=== PATIENT | female | born 1955 | race Caucasian/White ===

== ENCOUNTER 2020-06-25 01:19 | Inpatient (IN) | payer MEDICARE, OTHER ==
[~2020-06-25] VITALS: Ht 162.6 cm; Wt 117.9 kg
[2020-06-25 03:17] LABS: BASOPHILS # (AUTO) 0.1 (0.0-0.1); BASOPHILS % 0.5 % (0.0-1.0); EOSINOPHILS # (AUTO) 0.1 (0.0-0.4); HEMATOCRIT 34.2 % (34.2-44.1); HEMOGLOBIN 10.1 g/dL (12.0-16.0); LYMPHOCYTES # (AUTO) 1.6 (1.0-3.2); LYMPHOCYTES % 14.6 % (18.0-39.1); MEAN CORPUSCULAR HGB CONC 29.5 g/dL (31-35); MEAN CORPUSCULAR VOLUME 87.9 fL (81-99); MONOCYTES # (AUTO) 0.9 (0.2-0.8); MONOCYTES % 8.5 % (4.4-11.3); NEUTROPHILS # (AUTO) 8.3 (2.1-6.9); PLATELET COUNT 269 x10e3/uL (140-360); RED BLOOD COUNT 3.89 x10e6/uL (3.6-5.1); RED CELL DISTRIBUTION WIDTH 19.9 % (11.7-14.4)
[2020-06-25 03:26] LABS: INR 1.04; PROTHROMBIN TIME 14.3 seconds (11.9-14.5)
[2020-06-25 03:32] LABS: CALCIUM 8.3 mg/dL (8.4-10.2); CREATININE, SERUM 1.19 mg/dL (0.57-1.11)
[2020-06-25] MEDS ORDERED: SODIUM CHLORIDE 0.9% 1000ML 1,000 ML IV STA (04:05)
[2020-06-25] MEDS ORDERED: SODIUM CHLORIDE 0.9% 50ML 50 ML ONE (04:56)
[2020-06-25] MEDS ORDERED: IOPAMIDOL 370 MG/ML 200 ML INFUS..BTL INJ ONE (04:57)
[2020-06-25] MEDS: ONDANSETRON HCL INJ 2MG/ML 2ML 2 MG/ML VIAL IV PRN ×3 (05:45→17:50)
[2020-06-25] MEDS: MORPHINE SULFATE INJ 2 MG/ML SYR IV PRN ×2 (05:45→11:20)
[2020-06-25 07:25] VITALS: BP 114/67
[2020-06-25 08:39] VITALS: BP 114/67
[2020-06-25] MEDS ORDERED: OMEPRAZOLE20 MG PO (12:30)
[2020-06-25] MEDS ORDERED: LIPITOR20 MG PO (12:30)
[2020-06-25] MEDS ORDERED: GABAPENTIN400 MG PO (12:30)
[2020-06-25] MEDS ORDERED: LISINOPRIL10 MG PO (12:30)
[2020-06-25] MEDS ORDERED: TOPIRAMATE100 MG PO ×2 (12:30)
[2020-06-25] MEDS ORDERED: PROVENTIL HFA6.7 GM INH (12:30)
[2020-06-25] MEDS ORDERED: SINGULAIR10 MG PO (12:30)
[2020-06-25] MEDS ORDERED: ALBUTEROL SULFATE HFA 8GM INHALATION AEROSOL INH PRN ×2 (13:15→14:30)
[2020-06-25 13:31] VITALS: BP_SYST 90; BP_DIAS 46; BP_DIAS 56
[2020-06-25 16:49] VITALS: BP 129/89
[2020-06-25] MEDS ORDERED: GABAPENTIN 400 MG CAP PO SCH (17:00)
[2020-06-25 20:00] VITALS: BP 101/53
[2020-06-25] MEDS: GABAPENTIN 400 MG CAP PO SCH (20:32)
[2020-06-25] MEDS: ATORVASTATIN 20 MG TAB PO SCH (20:32)
[2020-06-25] MEDS: TOPIRAMATE 100 MG TAB PO SCH (20:32)
[2020-06-25 20:55] VITALS: BP 101/53
[2020-06-26] VITALS (8 sets, daily range): BP systolic 82–160; BP diastolic 48–91
[2020-06-26] MEDS: PANTOPRAZOLE SOD 40 MG TABEC PO SCH (07:30)
[2020-06-26] MEDS: GABAPENTIN 400 MG CAP PO SCH ×2 (09:00→21:56)
[2020-06-26] MEDS: MONTELUKAST SODIUM 10 MG TAB PO SCH (09:00)
[2020-06-26] MEDS: TOPIRAMATE 100 MG TAB PO SCH ×2 (09:00→21:56)
[2020-06-26] MEDS ORDERED: BUPIVACAINE 0.25%/EPI 30ML SDV INJ ONE (12:54)
[2020-06-26] MEDS ORDERED: SEVOFLURANE INHAL SOLN 250 ML PEN BTL ONE (13:56)
[2020-06-26] MEDS ORDERED: PROPOFOL IV EMULSION 10 MG/ML 20 ML VIAL ONE (13:56)
[2020-06-26] MEDS ORDERED: DEXAMETHASONE SOD PHOS INJ 4 MG/ML VIAL ONE (13:56)
[2020-06-26] MEDS ORDERED: ONDANSETRON HCL INJ 2MG/ML 2ML 2 MG/ML VIAL ONE (13:56)
[2020-06-26] MEDS ORDERED: LIDOCAINE HCL 2% LOCAL INJ 5 ML SDV VIAL INJ ONE (13:56)
[2020-06-26] MEDS ORDERED: HYDROCODONE/APAP 7.5MG-325MG 1 EA TAB PO PRN (14:45)
[2020-06-26] MEDS ORDERED: ONDANSETRON HCL INJ 2MG/ML 2ML 2 MG/ML VIAL IV PRN (14:45)
[2020-06-26] MEDS ORDERED: FENTANYL CITRATE/PF 100MCG/2 ML INJ ONE (19:39)
[2020-06-26] MEDS ORDERED: MIDAZOLAM HCL 2 MG/2 ML VIAL ONE (19:39)
[2020-06-26 20:51] LABS: BASOPHILS # (AUTO) 0.1 (0.0-0.1); BASOPHILS % 0.2 % (0.0-1.0); HEMATOCRIT 28.2 % (34.2-44.1); LYMPHOCYTES % 4.7 % (18.0-39.1); MEAN CORPUSCULAR HEMOGLOBIN 25.9 pg (28-32); MEAN CORPUSCULAR HGB CONC 28.4 g/dL (31-35); MEAN CORPUSCULAR VOLUME 91.3 fL (81-99); MONOCYTES # (AUTO) 1.2 (0.2-0.8); MONOCYTES % 5.9 % (4.4-11.3); NEUTROPHILS % 88.4 % (38.7-80.0); PLATELET COUNT 273 x10e3/uL (140-360); RED BLOOD COUNT 3.09 x10e6/uL (3.6-5.1); RED CELL DISTRIBUTION WIDTH 20.5 % (11.7-14.4)
[2020-06-26 21:09] LABS: ALBUMIN 3.2 g/dL (3.5-5.0); ALBUMIN/GLOBULIN RATIO 1.1 (0.8-2.0); ANION GAP 15.9 mmol/L (8-16); CALCIUM 8.1 mg/dL (8.4-10.2); CREATININE, SERUM 3.7 mg/dL (0.57-1.11); POTASSIUM 3.9 mmol/L (3.5-5.1)
[2020-06-26] MEDS: ATORVASTATIN 20 MG TAB PO SCH (21:56)
[2020-06-26] MEDS: CEFTRIAXONE SOD 2 GM/NS 100 ML 100 ML IV SCH (22:55)
[2020-06-26] MEDS: SODIUM CHLORIDE 0.9% 1000ML 1,000 ML IV SCH (22:55)
[2020-06-27] VITALS (9 sets, daily range): BP systolic 72–133; BP diastolic 39–97
[2020-06-27] MEDS: SODIUM CHLORIDE 0.9% 1000ML 1,000 ML IV SCH ×3 (03:03→20:45)
[2020-06-27] MEDS: PANTOPRAZOLE SOD 40 MG TABEC PO SCH (08:30)
[2020-06-27 09:17] LABS: BASOPHILS % 0.3 % (0.0-1.0); EOSINOPHILS % 0.3 % (0.0-6.0); LYMPHOCYTES # (AUTO) 1.6 (1.0-3.2); LYMPHOCYTES % 10.2 % (18.0-39.1); MEAN CORPUSCULAR HEMOGLOBIN 25.6 pg (28-32); MEAN CORPUSCULAR HGB CONC 27.8 g/dL (31-35); MEAN CORPUSCULAR VOLUME 92.1 fL (81-99); MONOCYTES # (AUTO) 1.4 (0.2-0.8); MONOCYTES % 8.8 % (4.4-11.3); NEUTROPHILS # (AUTO) 12.6 (2.1-6.9); NEUTROPHILS % 79.8 % (38.7-80.0); PLATELET COUNT 283 x10e3/uL (140-360); RED BLOOD COUNT 2.42 x10e6/uL (3.6-5.1); RED CELL DISTRIBUTION WIDTH 20.5 % (11.7-14.4)
[2020-06-27 09:21] LABS: HEMATOCRIT 22.3 % (34.2-44.1); HEMOGLOBIN 6.2 g/dL (12.0-16.0)
[2020-06-27] MEDS: MONTELUKAST SODIUM 10 MG TAB PO SCH (09:27)
[2020-06-27] MEDS: TOPIRAMATE 100 MG TAB PO SCH ×2 (09:27→20:59)
[2020-06-27] MEDS: GABAPENTIN 400 MG CAP PO SCH ×2 (09:27→20:59)
[2020-06-27 09:33] LABS: ANION GAP 12.4 mmol/L (8-16); CREATININE, SERUM 4.04 mg/dL (0.57-1.11); POTASSIUM 3.4 mmol/L (3.5-5.1)
[2020-06-27 09:36] LABS: CALCIUM 6.9 mg/dL (8.4-10.2)
[2020-06-27] MEDS ORDERED: FUROSEMIDE INJ 10 MG/ML 2 ML VIAL IV ONE ×2 (11:30→12:00)
[2020-06-27] MEDS ORDERED: SODIUM CHLORIDE 0.9% 250ML 250 ML IV ONE (12:00)
[2020-06-27] MEDS: CEFTRIAXONE SOD 2 GM/NS 100 ML 100 ML IV SCH (15:30)
[2020-06-27] MEDS: SODIUM BICARBONATE 8.4% 75 ML in SODIUM CHLORIDE 0.45% 1,000 ML IV SCH (18:19)
[2020-06-27 19:08] LABS: ALBUMIN 2.6 g/dL (3.5-5.0); ANION GAP 13.9 mmol/L (8-16); CALCIUM 7.4 mg/dL (8.4-10.2); CREATININE, SERUM 3.55 mg/dL (0.57-1.11); POTASSIUM 3.9 mmol/L (3.5-5.1)
[2020-06-27] MEDS: ATORVASTATIN 20 MG TAB PO SCH (20:59)
[2020-06-27 23:07] LABS: CLARITY,URINE SL CLOUDY (CLEAR); COLOR,URINE YELLOW (YELLOW); KETONES,URINE NEGATIVE (NEGATIVE); LEUKOCYTE ESTERASE ,URINE NEGATIVE (NEGATIVE); NITRITE,URINE NEGATIVE (NEGATIVE); PROTEIN,URINE DIPSTICK 1+ (NEGATIVE); URINE UROBILINOGEN 0.2 mg/dL (0.2 - 1)
[2020-06-27 23:11] LABS: AMORPHOUS SEDIMENT,URINE MODERATE (FEW); BACTERIA,URINE FEW /HPF; EPITHELIAL CELLS,URINE FEW /LPF; RBC,URINE 0-5 /HPF (0-5); WBC,URINE (MAN) 0-5 /HPF (0-5)
[2020-06-27 23:35] LABS: CREATININE,URINE RANDOM 88.54 mg/dL (47-110)
[2020-06-27 23:36] LABS: SODIUM,URINE < 20 mmol/L
[2020-06-28] VITALS (13 sets, daily range): BP systolic 70–165; BP diastolic 49–96
[2020-06-28] MEDS ORDERED: FUROSEMIDE INJ 10 MG/ML 4 ML VIAL ONE (01:53)
[2020-06-28] MEDS ORDERED: SODIUM CHLORIDE 0.9% 250ML 500 ML ONE (01:54)
[2020-06-28] MEDS: SODIUM BICARBONATE 8.4% 75 ML in SODIUM CHLORIDE 0.45% 1,000 ML IV SCH ×2 (03:00→16:57)
[2020-06-28] MEDS: SODIUM CHLORIDE 0.9% 1000ML 1,000 ML IV SCH (04:18)
[2020-06-28 09:53] LABS: BASOPHILS % 0.2 % (0.0-1.0); EOSINOPHILS # (AUTO) 0.2 (0.0-0.4); HEMATOCRIT 25.1 % (34.2-44.1); HEMOGLOBIN 7.2 g/dL (12.0-16.0); LYMPHOCYTES # (AUTO) 1.4 (1.0-3.2); LYMPHOCYTES % 9.5 % (18.0-39.1); MEAN CORPUSCULAR HEMOGLOBIN 26.8 pg (28-32); MEAN CORPUSCULAR HGB CONC 28.7 g/dL (31-35); MEAN CORPUSCULAR VOLUME 93.3 fL (81-99); MONOCYTES # (AUTO) 1.2 (0.2-0.8); MONOCYTES % 8.1 % (4.4-11.3); NEUTROPHILS # (AUTO) 11.6 (2.1-6.9); NEUTROPHILS % 80.7 % (38.7-80.0); PLATELET COUNT 244 x10e3/uL (140-360); RED BLOOD COUNT 2.69 x10e6/uL (3.6-5.1); RED CELL DISTRIBUTION WIDTH 18.9 % (11.7-14.4)
[2020-06-28] MEDS ORDERED: IRON DEXTRAN INJ 500 MG in SODIUM CHLORIDE 0.9% 500ML 500 ML IV PRN (10:00)
[2020-06-28 10:13] LABS: ALBUMIN 2.2 g/dL (3.5-5.0); ALBUMIN/GLOBULIN RATIO 0.9 (0.8-2.0); ANION GAP 17.2 mmol/L (8-16); CALCIUM 7.1 mg/dL (8.4-10.2); CREATININE, SERUM 2.99 mg/dL (0.57-1.11); POTASSIUM 4.2 mmol/L (3.5-5.1)
[2020-06-28] MEDS: PANTOPRAZOLE SOD 40 MG TABEC PO SCH (10:20)
[2020-06-28] MEDS: MONTELUKAST SODIUM 10 MG TAB PO SCH (10:20)
[2020-06-28] MEDS: GABAPENTIN 400 MG CAP PO SCH (10:20)
[2020-06-28] MEDS: TOPIRAMATE 100 MG TAB PO SCH (10:20)
[2020-06-28] MEDS ORDERED: ENOXAPARIN SOD INJ 40 MG/0.4 ML SYR SC SCH (10:30)
[2020-06-28 10:32] LABS: PHOSPHORUS 4.7 MG/DL (2.3-4.7)
[2020-06-28] MEDS ORDERED: SODIUM CHLORIDE 0.45% 1,000 ML ONE (10:57)
[2020-06-28] MEDS ORDERED: SODIUM CHLORIDE 0.9% 250ML 250 ML IV ONE ×2 (11:00)
[2020-06-28] MEDS ORDERED: SODIUM CHLORIDE 0.9% 500ML 500 ML IV ONE (11:00)
[2020-06-28] MEDS ORDERED: DEXAMETHASONE PHOS 10MG INJ 20 MG in SODIUM CHLORIDE 0.9% 50ML 50 ML IV ONE (12:00)
[2020-06-28] MEDS ORDERED: FAMOTIDINE INJ 20 MG in SODIUM CHLORIDE 0.9% 50ML 50 ML IV ONE (12:00)
[2020-06-28] MEDS ORDERED: DIPHENHYDRAMINE HCL INJ 25 MG in SODIUM CHLORIDE 0.9% 50ML 50 ML IV ONE (12:30)
[2020-06-28] MEDS ORDERED: IRON DEXTRAN INJ 50 MG in SODIUM CHLORIDE 0.9% 100 ML IV ONE (13:00)
[2020-06-28] MEDS ORDERED: HEPARIN SOD (PORCINE) 5,000 UNIT/ML VIAL IV ONE (16:00)
[2020-06-28] MEDS: HEPARIN 25,000 UNIT/D5W 250ML 250 ML IV SCH ×2 (16:19→18:02)
[2020-06-28] MEDS: CEFTRIAXONE SOD 2 GM/NS 100 ML 100 ML IV SCH (16:36)
[2020-06-28] MEDS ORDERED: SODIUM CHLORIDE 0.9% 250ML 250 ML ONE (18:38)
== END 2020-06-28 21:15 | disposition short-term general hospital (02) | DRG 815 ==
LOC: ER 01:21 → ERHOLD 06:36 → MED/SURG3 06:41 → INTOOBSV 06-26 11:39 → OBSVTOIN 06-26 11:39 → ICU 06-28 16:13
PROVIDERS: ADMIT Internal Medicine; ATTEND Internal Medicine
PROC: 0W9G30Z Drainage of Peritoneal Cavity with Drainage Device, Percutaneous Approach (ICD-10-PCS; 2020-06-26)
PROC: 30243N1 Transfusion of Nonautologous Red Blood Cells into Central Vein, Percutaneous Approach (ICD-10-PCS; 2020-06-26)
PROC: 02HV33Z Insertion of Infusion Device into Superior Vena Cava, Percutaneous Approach (ICD-10-PCS; principal; 2020-06-26 13:00)
DX: D68.51 Activated protein C resistance (principal); Z68.41 Body mass index [BMI] 40.0-44.9, adult; I82.B12 Acute embolism and thrombosis of left subclavian vein; S30.1XXA Contusion of abdominal wall, initial encounter; I95.9 Hypotension, unspecified; J44.9 Chronic obstructive pulmonary disease, unspecified; G43.909 Migraine, unspecified, not intractable, without status migrainosus; Z89.612 Acquired absence of left leg above knee; Z99.3 Dependence on wheelchair; D50.9 Iron deficiency anemia, unspecified; E66.01 Morbid (severe) obesity due to excess calories; S70.02XA Contusion of left hip, initial encounter; Z86.14 Personal history of Methicillin resistant Staphylococcus aureus infection; Z20.822 Contact with and (suspected) exposure to COVID-19; I73.9 Peripheral vascular disease, unspecified
CPT/HCPCS: 36415; 71045; 72193; 74470; 76770; 80048; 80053; 81001; 82570; 82948; 83605; 83735; 84100; 84300; 85025; 85610; 85730; 86850; 86900; 86920; 87040; 93041; 93931; 99251; 99284; G0378; J0696; J1100; J1200; J1644; J1650; J1750; J1940; J2001; J2250; J2270; J2405; J3010; J7030; J7040; J7050; P9016; Q9967; U0002

== ENCOUNTER 2020-07-23 13:30 | Emergency (ER) | payer MEDICARE, OTHER ==
[~2020-07-23] VITALS: Ht 162.6 cm; Wt 117.9 kg
[~2020-07-23 13:30] MED LIST: GABAPENTIN400 MG PO; LIPITOR20 MG PO; LISINOPRIL10 MG PO; OMEPRAZOLE20 MG PO; PROVENTIL HFA6.7 GM INH; SINGULAIR10 MG PO; TOPIRAMATE100 MG PO
[2020-07-23 14:14] LABS: BASOPHILS % 0.6 % (0.0-1.0); EOSINOPHILS # (AUTO) 0.4 (0.0-0.4); EOSINOPHILS % 5.1 % (0.0-6.0); HEMATOCRIT 36.2 % (34.2-44.1); HEMOGLOBIN 10.7 g/dL (12.0-16.0); LYMPHOCYTES # (AUTO) 0.8 (1.0-3.2); LYMPHOCYTES % 10.7 % (18.0-39.1); MEAN CORPUSCULAR HEMOGLOBIN 29.1 pg (28-32); MEAN CORPUSCULAR HGB CONC 29.6 g/dL (31-35); MEAN CORPUSCULAR VOLUME 98.4 fL (81-99); MONOCYTES # (AUTO) 0.5 (0.2-0.8); MONOCYTES % 7.1 % (4.4-11.3); NEUTROPHILS # (AUTO) 5.4 (2.1-6.9); NEUTROPHILS % 76.1 % (38.7-80.0); PLATELET COUNT 243 x10e3/uL (140-360); RED BLOOD COUNT 3.68 x10e6/uL (3.6-5.1); RED CELL DISTRIBUTION WIDTH 18.1 % (11.7-14.4)
[2020-07-23 14:26] LABS: ALBUMIN 3.4 g/dL (3.5-5.0); ALBUMIN/GLOBULIN RATIO 0.8 (0.8-2.0); ANION GAP 16.4 mmol/L (8-16); CREATININE, SERUM 1.75 mg/dL (0.57-1.11); POTASSIUM 3.4 mmol/L (3.5-5.1)
[2020-07-23 14:35] LABS: CREATINE KINASE MB 2.4 ng/mL (0-5.0)
[2020-07-23] MEDS: ONDANSETRON HCL INJ 2MG/ML 2ML 2 MG/ML VIAL IV STA (15:48)
[2020-07-23] MEDS: HYDROCODONE/APAP 10MG-325MG TAB PO ONE (16:00)
[2020-07-23] MEDS: PHENAZOPYRIDINE HCL 100 MG TAB PO PRN (16:01)
[2020-07-23] MEDS: ONDANSETRON HCL 4 MG ORAL DISINTEGRATING TAB PO ONE (16:01)
[2020-07-23] MEDS ORDERED: CEFUROXIME250 MG PO ×2 (16:05→16:31)
[2020-07-23] MEDS ORDERED: TYLENOL # 31 EA PO ×2 (16:05→16:31)
== END 2020-07-23 16:58 | disposition home or self-care (01) ==
LOC: ER 14:37
DX: N39.0 Urinary tract infection, site not specified (principal); R30.0 Dysuria; R31.9 Hematuria, unspecified; I12.9 Hypertensive chronic kidney disease with stage 1 through stage 4 chronic kidney disease, or unspecified chronic kidney disease; N18.1 Chronic kidney disease, stage 1; G40.909 Epilepsy, unspecified, not intractable, without status epilepticus; I25.10 Atherosclerotic heart disease of native coronary artery without angina pectoris; J45.909 Unspecified asthma, uncomplicated; D68.51 Activated protein C resistance; Z86.73 Personal history of transient ischemic attack (TIA), and cerebral infarction without residual deficits
CPT/HCPCS: 36415; 80053; 82550; 82553; 84484; 85025; 99284; J2405; Q0162